=== PATIENT | male | born 1970 | race Caucasian/White ===

== ENCOUNTER → 2019-06-05 | Outpatient (CLI) | payer OTHER ==
[~2019-06-05] MED LIST: NORCO 5-325 TA1 EACH PO; TORADOL 10 MG T10 MG PO
--- NOTE | 2019-06-06 11:10 | TST ---
[place] [address] TREADMILL STRESS TEST Name: MIGUEL ARELLANO Room: [facility]#: [id number] Admission: 06/05/19 Attend Phys: Yasmin Cleary Discharge: Date of : 66 Date of Service: 06/05/19 1553 Report #: [id number] THIS REPORT FOR: //name// CC: JUAQUIN [place] NP DATE OF SERVICE: 06/05/2019 [id number] electrocardiogram demonstrates sinus rhythm with a minor interventricular conduction delay on the right side. The patient exercised for 5 minutes and 27 seconds of a Arun protocol, stopping because of shortness of breath and fatigue. He denied chest pain. The patient achieved a peak heart rate of 160, 94% of the age predicted maximum. Blood pressure is 145/89 initially, increasing to 223/99 at peak exercise and falling to 134/80 during the post-exercise phase. There were no ischemic ST-T alterations noted during or post-exercise. There were minor nonspecific ST-T changes during the post-exercise phase. There were occasional isolated PVCs prior to and post exercise, but no complex arrhythmias were noted. IMPRESSION: 1. Negative treadmill exercise test for provocation of ischemic ST-T alterations. 2. No chest pain provoked by exertion. 3. Appropriate heart rate and systolic blood pressure response to exercise. 4. No significant arrhythmias were noted; occasional isolated premature ventricular contractions were observed. 5. Mildly reduced level of fitness for age. <ELECTRONICALLY SIGNED> By: Juaquin Son MD, FACC 06/06/19 1110 1553 0010 Juaquin Son MD, FACC /nt
== END ==
LOC: M.CRD 14:36
DX: R42 Dizziness and giddiness (principal)